=== PATIENT | female | born 1995 | race Caucasian/White ===

== ENCOUNTER 2018-08-11 04:42 | Emergency (ER) | payer BC ==
[2018-08-11] MEDS ORDERED: ONDANSETRON 4 MG/2 ML VIAL ONE (04:55)
[2018-08-11] MEDS ORDERED: NS 1,000 ML IV ONE (05:05)
[2018-08-11] MEDS ORDERED: ONDANSETRON 4 MG/2 ML VIAL IVP ONE (05:05)
--- NOTE | 2018-08-11 05:30 | EDPHY ---
H & P Stated Complaint: VOMITING BLOOD Time Seen by Provider: 08/11/18 04:50 HPI/ROS: HPI The patient presents with nausea, vomiting which awoke her from sleep at about 2 :30 a.m.. She felt well when she went to bed. She ate at about 5:00 p.m. A regular dinner. She drink about 2 glasses of wine during dinner. She awoke and had about 5 episodes of vomiting which looked dark brown to her. She was concerned that she was bleeding and comes to the emergency department because of this. She says she is someone who frequently vomits and this is not unusual , however has never had dark brown vomitus. She currently is feeling fairly well. She has mild epigastric abdominal pain.. REVIEW OF SYSTEMS 10 systems were reviewed and negative with the exception of the elements mentioned in the history of present illness. PMHx: Healthy Soc Hx: Student at [employer], occasional alcohol use PHYSICAL General Appearance: Alert, no distress Eyes: Pupils equal and round no pallor or injection ENT, Mouth: Mucous membranes moist Respiratory: There are no retractions, lungs are clear to auscultation Cardiovascular: Regular rate and rhythm Gastrointestinal: Abdomen is soft and tender in the epigastrium, no masses, bowel sounds normal Neurological: A&O, moves all extremities Skin: Warm and dry, no rashes Musculoskeletal: Neck is supple non tender Extremities: symmetrical, full range of motion Psychiatric: Patient is oriented X 3, there is no agitation Source: Patient Exam Limitations: No limitations - Personal History LMP (Females 10-55): 1-7 Days Ago Current Tetanus Diphtheria and Acellular Pertussis (TDAP): Yes - Medical/Surgical History Hx Asthma: No Hx Chronic Respiratory Disease: No Hx Diabetes: No Hx Cardiac Disease: No Hx Renal Disease: No Hx Cirrhosis: No Hx Alcoholism: No Hx HIV/AIDS: No Hx Splenectomy or Spleen Trauma: No Other PMH: CYST REMOVAL FROM THROAT - Social History Smoking Status: Never smoked Constitutional: Initial Vital Signs Temperature (C) 36.4 C 08/11/18 04:46 Heart Rate 100 08/11/18 04:46 Respiratory Rate 16 08/11/18 04:46 Blood Pressure 117/93 H 08/11/18 04:46 O2 Sat (%) 96 08/11/18 04:46 O2 Delivery Mode Room Air Allergies/Adverse Reactions: amoxicillin Allergy (Verified 08/11/18 04:46) clavulanic acid [From Augmentin] Allergy (Verified 08/11/18 04:46) Home Medications: Medication Instructions Recorded Famotidine [Pepcid 20 MG (*)] 20 mg PO BID #30 tab 08/11/18 Medical Decision Making Differential Diagnosis: 23-year-old female who is healthy presents with nausea and vomiting which began at about 2:30 a.m. And awoke her from sleep. She had about 5 episodes of dark brown vomitus which has now resolved. She has epigastric tenderness on exam which is mild. She does not have any dark or bloody stools, vital signs are normal, she is not heavy alcohol drinker., thus I doubt serious GI bleed. I suspect she could have gastritis with some inflammation in bleeding, esophagitis is also a consideration, less likely pancreatitis. In the emergency department, patient received IV fluids and Zofran with improvement in her symptoms. She was able to tolerate fluids without difficulty. I suspect gastritis is the cause of her symptoms. Without any ongoing bleeding , I do not feel that she needs to be admitted to the hospital. I have encouraged her to avoid alcohol. I have encouraged trial of H2 tierney. She will be discharged from the emergency department. - Data Points Medications Given: Discontinued Medications Sodium Chloride (Ns) 1,000 mls @ 0 mls/hr IV EDNOW ONE; Wide Open PRN Reason: Protocol Stop: 08/11/18 05:06 Last Admin: 08/11/18 05:06 Dose: 1,000 mls Ondansetron HCl (Zofran) 4 mg IVP EDNOW ONE Stop: 08/11/18 05:06 Last Admin: 08/11/18 05:06 Dose: 4 mg Departure - Departure Disposition: Home, Routine, Self-Care Clinical Impression: Vomiting Qualifiers: Vomiting type: unspecified Vomiting Intractability: non-intractable Nausea presence: with nausea Qualified Code(s): R11.2 - Nausea with vomiting, unspecified Condition: Good Instructions: Gastritis (ED), Diet for Stomach Ulcers and Gastritis (ED) Additional Instructions: Please make sure to drink plenty of fluids. I would avoid alcohol, spicy foods , acidic foods until your feeling better. Return if you have any more similar vomiting. Referrals: [facility],. [Clinic] - As per Instructions Prescriptions: Famotidine [Pepcid 20 MG (*)] 20 mg PO BID #30 tab
[2018-08-11 05:31] LABS: PLATELET COUNT 211 10^3/uL (150-400)
[2018-08-11] MEDS ORDERED: ONDANSETRON 4MG PREPACK#2 BTL TAKEHOME ONE (06:03)
[2018-08-11 06:40] VITALS: BP 112/79
== END 2018-08-11 06:38 | disposition home or self-care (01) ==
DX: R11.2 Nausea with vomiting, unspecified (principal); E86.9 Volume depletion, unspecified
CPT/HCPCS: 96374; J2405